=== PATIENT | male | born 1950 | race Asian ===

== ENCOUNTER 2020-01-08 06:43 | Inpatient (IN) | payer OTHER ==
[~2020-01-08] VITALS: Ht 149.9 cm; Wt 50.3 kg
[~2020-01-08 06:43] MED LIST: AMITIZA24 MC1 PO; FLA500 PO; LEVAQUIN500 M1 PO; MIRUD PO
[2020-01-08 07:06] VITALS: BP 142/79
[2020-01-08 14:00] VITALS: BP 142/65
[2020-01-08 14:03] LABS: BASOPHIL % 0 % (0-2); PLATELET COUNT 573 x10^3mcL (130-400); RED CELL DISTRIBUTION WIDTH 15.2 % (11.5-14.5)
[2020-01-08 14:08] LABS: CALCIUM 7.8 mg/dL (8.5-10.1); CARBON DIOXIDE 23.3 mmol/L (21-32); CHLORIDE SERUM 103 mmol/L (98-107); CREATININE SERUM 0.7 mg/dL (0.7-1.3); GFR1 > 60 mL/min; GLUCOSE SERUM 161 mg/dL (74-106); POTASSIUM SERUM 3.4 mmol/L (3.5-5.1); SODIUM SERUM 138 mmol/L (136-145)
[2020-01-08 14:13] LABS: ALKALINE PHOSPHATASE 45 U/L (46-116); ALT/SGPT 19 U/L (16-63); AST/SGOT 22 U/L (15-37); BILIRUBIN TOTAL 0.3 mg/dL (0.20-1.00); TOTAL PROTEIN, SERUM 6.6 g/dL (6.4-8.2)
[2020-01-08 14:32] LABS: ALBUMIN 2.7 g/dL (3.4-5.0)
[2020-01-08 16:23] VITALS: BP 103/52
[2020-01-09 07:15] LABS: BASOPHIL % 0.1 % (0-2)
[2020-01-09 07:28] LABS: ALBUMIN 2.4 g/dL (3.4-5.0); ALKALINE PHOSPHATASE 40 U/L (46-116); ALT/SGPT 14 U/L (16-63); AST/SGOT 19 U/L (15-37); BILIRUBIN TOTAL 0.3 mg/dL (0.20-1.00); CALCIUM 7.8 mg/dL (8.5-10.1); CARBON DIOXIDE 25.6 mmol/L (21-32); CHLORIDE SERUM 106 mmol/L (98-107); CREATININE SERUM 0.7 mg/dL (0.7-1.3); GFR1 > 60 mL/min; GLUCOSE SERUM 139 mg/dL (74-106); POTASSIUM SERUM 3.3 mmol/L (3.5-5.1); SODIUM SERUM 138 mmol/L (136-145); TOTAL PROTEIN, SERUM 6.2 g/dL (6.4-8.2)
[2020-01-09 07:38] LABS: PLATELET COUNT 540 x10^3mcL (130-400)
[2020-01-09 09:13] VITALS: BP 131/71
[2020-01-09 16:12] VITALS: BP 109/62
[2020-01-09 17:53] VITALS: BP 121/69
[2020-01-09 20:15] VITALS: BP 106/64
[2020-01-09 22:30] VITALS: BP 110/52
[2020-01-10 02:43] VITALS: BP 115/56
[2020-01-10 07:19] LABS: CALCIUM 7.8 mg/dL (8.5-10.1); CARBON DIOXIDE 27.2 mmol/L (21-32); CHLORIDE SERUM 107 mmol/L (98-107); CREATININE SERUM 0.8 mg/dL (0.7-1.3); GFR1 > 60 mL/min; GLUCOSE SERUM 103 mg/dL (74-106); SODIUM SERUM 141 mmol/L (136-145)
[2020-01-10 07:56] LABS: PLATELET COUNT 460 x10^3mcL (130-400); RED CELL DISTRIBUTION WIDTH 15.5 % (11.5-14.5)
[2020-01-10 08:48] LABS: rbc morphology (normal/abnorm) NORMAL (NORMAL)
[2020-01-10 09:40] VITALS: BP 105/56
[2020-01-10 13:47] VITALS: BP 92/52
[2020-01-10 18:18] VITALS: BP 109/59
[2020-01-10 20:59] VITALS: BP 99/59
[2020-01-11 06:22] VITALS: BP 101/57
[2020-01-11 07:09] LABS: BASOPHIL % 0 % (0-2); PLATELET COUNT 420 x10^3mcL (130-400); RED CELL DISTRIBUTION WIDTH 16.8 % (11.5-14.5)
[2020-01-11 07:43] LABS: ALKALINE PHOSPHATASE 82 U/L (46-116); ALT/SGPT 12 U/L (16-63); AST/SGOT 27 U/L (15-37); BILIRUBIN TOTAL 0.8 mg/dL (0.20-1.00); CALCIUM 7.6 mg/dL (8.5-10.1); CARBON DIOXIDE 24.7 mmol/L (21-32); CHLORIDE SERUM 106 mmol/L (98-107); CREATININE SERUM 0.7 mg/dL (0.7-1.3); GFR1 > 60 mL/min; GLUCOSE SERUM 112 mg/dL (74-106); POTASSIUM SERUM 3.7 mmol/L (3.5-5.1); SODIUM SERUM 139 mmol/L (136-145)
[2020-01-11 07:54] LABS: ALBUMIN 1.7 g/dL (3.4-5.0); TOTAL PROTEIN, SERUM 5.1 g/dL (6.4-8.2)
[2020-01-11 08:41] VITALS: BP 114/66
[2020-01-11 08:58] LABS: CALCIUM 7.1 mg/dL (8.5-10.1); CARBON DIOXIDE 25.3 mmol/L (21-32); CHLORIDE SERUM 106 mmol/L (98-107); CREATININE SERUM 0.7 mg/dL (0.7-1.3); GFR1 > 60 mL/min; GLUCOSE SERUM 114 mg/dL (74-106); SODIUM SERUM 140 mmol/L (136-145)
[2020-01-11 12:28] VITALS: BP 129/75
[2020-01-11 17:15] VITALS: BP 128/78
[2020-01-11 20:25] VITALS: BP 142/69
[2020-01-12 05:28] VITALS: BP 139/51
[2020-01-12 07:32] LABS: PLATELET COUNT 423 x10^3mcL (130-400); RED CELL DISTRIBUTION WIDTH 16.5 % (11.5-14.5)
[2020-01-12 07:45] LABS: ALKALINE PHOSPHATASE 32 U/L (46-116); ALT/SGPT 13 U/L (16-63); AST/SGOT 26 U/L (15-37); BILIRUBIN TOTAL 0.6 mg/dL (0.20-1.00); CALCIUM 7.7 mg/dL (8.5-10.1); CARBON DIOXIDE 24.2 mmol/L (21-32); CHLORIDE SERUM 105 mmol/L (98-107); CREATININE SERUM 0.6 mg/dL (0.7-1.3); GFR1 > 60 mL/min; GLUCOSE SERUM 120 mg/dL (74-106); POTASSIUM SERUM 3.7 mmol/L (3.5-5.1); SODIUM SERUM 142 mmol/L (136-145)
[2020-01-12 07:47] LABS: ALBUMIN 1.6 g/dL (3.4-5.0); TOTAL PROTEIN, SERUM 5.7 g/dL (6.4-8.2)
[2020-01-12 08:02] VITALS: BP 155/83
[2020-01-12 10:43] LABS: CALCIUM 7.9 mg/dL (8.5-10.1); CARBON DIOXIDE 24.1 mmol/L (21-32); CHLORIDE SERUM 106 mmol/L (98-107); CREATININE SERUM 0.7 mg/dL (0.7-1.3); GFR1 > 60 mL/min; GLUCOSE SERUM 121 mg/dL (74-106); POTASSIUM SERUM 3.7 mmol/L (3.5-5.1); SODIUM SERUM 142 mmol/L (136-145)
[2020-01-12 12:52] VITALS: BP 110/59
[2020-01-12 13:22] LABS: rbc morphology (normal/abnorm) NORMAL (NORMAL)
[2020-01-12 16:50] VITALS: BP 132/77
[2020-01-12 19:50] VITALS: BP 138/72
[2020-01-13 05:31] VITALS: BP 127/70
[2020-01-13 07:15] VITALS: BP 140/69
[2020-01-13 08:19] LABS: ALKALINE PHOSPHATASE 61 U/L (46-116); ALT/SGPT 10 U/L (16-63); AST/SGOT 22 U/L (15-37); BILIRUBIN TOTAL 0.4 mg/dL (0.20-1.00); CALCIUM 7.5 mg/dL (8.5-10.1); CARBON DIOXIDE 31.6 mmol/L (21-32); CHLORIDE SERUM 105 mmol/L (98-107); CREATININE SERUM 0.5 mg/dL (0.7-1.3); GFR1 > 60 mL/min; GLUCOSE SERUM 143 mg/dL (74-106); POTASSIUM SERUM 3.1 mmol/L (3.5-5.1); SODIUM SERUM 142 mmol/L (136-145)
[2020-01-13 08:21] LABS: ALBUMIN 1.4 g/dL (3.4-5.0); TOTAL PROTEIN, SERUM 5.4 g/dL (6.4-8.2)
[2020-01-13 08:42] LABS: PLATELET COUNT 401 x10^3mcL (130-400); RED CELL DISTRIBUTION WIDTH 16.1 % (11.5-14.5)
[2020-01-13 08:43] LABS: BASOPHIL % 0 % (0-2)
[2020-01-13 09:01] LABS: CALCIUM 7.3 mg/dL (8.5-10.1); CARBON DIOXIDE 30.3 mmol/L (21-32); CHLORIDE SERUM 106 mmol/L (98-107); CREATININE SERUM 0.5 mg/dL (0.7-1.3); GFR1 > 60 mL/min; GLUCOSE SERUM 143 mg/dL (74-106); MAGNESIUM 1.9 mg/dL (1.8-2.4); PHOSPHOROUS 1.9 mg/dL (2.5-4.9); POTASSIUM SERUM 3.3 mmol/L (3.5-5.1); SODIUM SERUM 144 mmol/L (136-145)
[2020-01-13 12:10] VITALS: BP 133/71
[2020-01-13 16:08] VITALS: BP 123/66
[2020-01-13 19:32] VITALS: BP 123/71
[2020-01-14 05:44] VITALS: BP 128/68
[2020-01-14 07:36] LABS: BASOPHIL % 0 % (0-2); PLATELET COUNT 421 x10^3mcL (130-400)
[2020-01-14 07:49] LABS: ALKALINE PHOSPHATASE 77 U/L (46-116); ALT/SGPT 14 U/L (16-63); AST/SGOT 25 U/L (15-37); BILIRUBIN TOTAL 0.79 mg/dL (0.20-1.00); CALCIUM 7.4 mg/dL (8.5-10.1); CARBON DIOXIDE 29.2 mmol/L (21-32); CHLORIDE SERUM 103 mmol/L (98-107); CREATININE SERUM 0.5 mg/dL (0.7-1.3); GFR1 > 60 mL/min; GLUCOSE SERUM 104 mg/dL (74-106); POTASSIUM SERUM 3.2 mmol/L (3.5-5.1); SODIUM SERUM 138 mmol/L (136-145)
[2020-01-14 07:50] LABS: ALBUMIN 1.4 g/dL (3.4-5.0); TOTAL PROTEIN, SERUM 5.5 g/dL (6.4-8.2)
[2020-01-14 08:34] VITALS: BP 115/67
[2020-01-14 12:36] VITALS: BP 114/66
[2020-01-14 16:23] VITALS: BP 117/68
[2020-01-14 21:22] VITALS: BP 116/71
[2020-01-15 05:33] VITALS: BP 120/3
[2020-01-15 07:40] LABS: BASOPHIL % 0.3 % (0-2)
[2020-01-15 07:57] LABS: PLATELET COUNT 447 x10^3mcL (130-400); RED CELL DISTRIBUTION WIDTH 15.9 % (11.5-14.5)
[2020-01-15 08:09] LABS: ALKALINE PHOSPHATASE 93 U/L (46-116); ALT/SGPT 23 U/L (16-63); AST/SGOT 31 U/L (15-37); BILIRUBIN TOTAL 0.8 mg/dL (0.20-1.00); CALCIUM 7.8 mg/dL (8.5-10.1); CARBON DIOXIDE 26.7 mmol/L (21-32); CHLORIDE SERUM 102 mmol/L (98-107); CREATININE SERUM 0.5 mg/dL (0.7-1.3); GFR1 > 60 mL/min; GLUCOSE SERUM 125 mg/dL (74-106); POTASSIUM SERUM 3.5 mmol/L (3.5-5.1); SODIUM SERUM 137 mmol/L (136-145)
[2020-01-15 08:12] LABS: ALBUMIN 1.5 g/dL (3.4-5.0); TOTAL PROTEIN, SERUM 5.7 g/dL (6.4-8.2)
[2020-01-15 08:28] VITALS: BP 104/59
[2020-01-15 11:11] LABS: CALCIUM 7.6 mg/dL (8.5-10.1); CARBON DIOXIDE 26.6 mmol/L (21-32); CHLORIDE SERUM 102 mmol/L (98-107); CREATININE SERUM 0.5 mg/dL (0.7-1.3); GFR1 > 60 mL/min; GLUCOSE SERUM 130 mg/dL (74-106); POTASSIUM SERUM 4.1 mmol/L (3.5-5.1); SODIUM SERUM 139 mmol/L (136-145)
[2020-01-15 11:47] VITALS: BP 104/59
[2020-01-15 12:16] VITALS: BP 117/65
[2020-01-15 16:56] VITALS: BP 107/66
[2020-01-15 20:17] VITALS: BP 113/71
[2020-01-16 05:30] VITALS: BP 116/62
[2020-01-16 07:30] LABS: CALCIUM 7.9 mg/dL (8.5-10.1); CARBON DIOXIDE 26.9 mmol/L (21-32); CHLORIDE SERUM 101 mmol/L (98-107); CREATININE SERUM 0.6 mg/dL (0.7-1.3); GFR1 > 60 mL/min; GLUCOSE SERUM 125 mg/dL (74-106); PHOSPHOROUS 3.4 mg/dL (2.5-4.9); POTASSIUM SERUM 3.8 mmol/L (3.5-5.1); SODIUM SERUM 135 mmol/L (136-145)
[2020-01-16 07:54] LABS: BASOPHIL % 0.2 % (0-2)
[2020-01-16 08:00] VITALS: BP 109/69
[2020-01-16 08:23] LABS: PLATELET COUNT 590 x10^3mcL (130-400); RED CELL DISTRIBUTION WIDTH 15.8 % (11.5-14.5)
[2020-01-16 12:17] VITALS: BP 105/59
[2020-01-16 17:03] VITALS: BP 100/62
[2020-01-16 19:59] VITALS: BP 115/66
[2020-01-17 04:49] VITALS: BP 108/63
[2020-01-17 07:02] LABS: BASOPHIL % 0.1 % (0-2)
[2020-01-17 07:10] LABS: RED CELL DISTRIBUTION WIDTH 15.8 % (11.5-14.5)
[2020-01-17 07:11] LABS: PLATELET COUNT 659 x10^3mcL (130-400)
[2020-01-17 07:14] LABS: CALCIUM 7.9 mg/dL (8.5-10.1); CARBON DIOXIDE 22.8 mmol/L (21-32); CHLORIDE SERUM 101 mmol/L (98-107); CREATININE SERUM 0.6 mg/dL (0.7-1.3); GFR1 > 60 mL/min; GLUCOSE SERUM 125 mg/dL (74-106); POTASSIUM SERUM 4.8 mmol/L (3.5-5.1); SODIUM SERUM 132 mmol/L (136-145)
[2020-01-17 08:35] VITALS: BP 109/61
[2020-01-17 11:57] VITALS: BP 114/65
[2020-01-17 16:35] VITALS: BP 94/58
[2020-01-17 20:11] VITALS: BP 111/67
[2020-01-18 06:24] VITALS: BP 111/66
[2020-01-18 06:26] VITALS: BP 111/66
[2020-01-18 07:16] LABS: BASOPHIL % 0.2 % (0-2)
[2020-01-18 07:31] VITALS: BP 106/67
[2020-01-18 07:44] LABS: CALCIUM 8.1 mg/dL (8.5-10.1); CARBON DIOXIDE 23.7 mmol/L (21-32); CHLORIDE SERUM 100 mmol/L (98-107); CREATININE SERUM 0.6 mg/dL (0.7-1.3); GFR1 > 60 mL/min; GLUCOSE SERUM 117 mg/dL (74-106); POTASSIUM SERUM 5.2 mmol/L (3.5-5.1); SODIUM SERUM 133 mmol/L (136-145)
[2020-01-18 08:07] LABS: PLATELET COUNT 743 x10^3mcL (130-400); RED CELL DISTRIBUTION WIDTH 15.8 % (11.5-14.5)
[2020-01-18 11:51] VITALS: BP 107/63
[2020-01-18 20:16] VITALS: BP 110/63
[2020-01-18 20:17] VITALS: BP 126/57
[2020-01-19 05:12] VITALS: BP 102/56
[2020-01-19 07:30] LABS: BASOPHIL % 0.6 % (0-2)
[2020-01-19 07:50] LABS: CARBON DIOXIDE 25.6 mmol/L (21-32); CHLORIDE SERUM 101 mmol/L (98-107); CREATININE SERUM 0.8 mg/dL (0.7-1.3); GFR1 > 60 mL/min; GLUCOSE SERUM 83 mg/dL (74-106); POTASSIUM SERUM 4.3 mmol/L (3.5-5.1); SODIUM SERUM 135 mmol/L (136-145)
[2020-01-19 08:57] VITALS: BP 99/65
[2020-01-19 10:33] LABS: RED CELL DISTRIBUTION WIDTH 15.3 % (11.5-14.5)
[2020-01-19 10:34] LABS: PLATELET COUNT 883 x10^3mcL (130-400)
[2020-01-19 12:51] VITALS: BP 105/63
[2020-01-19 17:13] VITALS: BP 110/56
[2020-01-19 20:12] VITALS: BP 100/62
[2020-01-20] VITALS (7 sets, daily range): BP systolic 99–135; BP diastolic 58–70
[2020-01-20 06:39] LABS: BASOPHIL % 0.4 % (0-2)
[2020-01-20 07:05] LABS: CARBON DIOXIDE 24.2 mmol/L (21-32); CHLORIDE SERUM 103 mmol/L (98-107); CREATININE SERUM 0.8 mg/dL (0.7-1.3); GFR1 > 60 mL/min; GLUCOSE SERUM 85 mg/dL (74-106); POTASSIUM SERUM 4.7 mmol/L (3.5-5.1); SODIUM SERUM 135 mmol/L (136-145)
[2020-01-20 07:06] LABS: RED CELL DISTRIBUTION WIDTH 15.6 % (11.5-14.5)
[2020-01-20 07:12] LABS: PLATELET COUNT 978 x10^3mcL (130-400)
== END 2020-01-20 20:09 | disposition home or self-care (01) | DRG 329 ==
LOC: DS 06:43 → OR 09:00 → MU 12:27 → DU 12:27 → MU 13:52 → DU 01-10 08:21
PROVIDERS: Internal Medicine; Internal Medicine Gastroenterology; ADMIT Surgery; ATTEND Surgery
PROC: 0DB68ZX Excision of Stomach, Via Natural or Artificial Opening Endoscopic, Diagnostic (ICD-10-PCS; principal; 2020-01-08 09:00)
PROC: 0DBN8ZX Excision of Sigmoid Colon, Via Natural or Artificial Opening Endoscopic, Diagnostic (ICD-10-PCS; 2020-01-08 09:00)
PROC: 0DTN4ZZ Resection of Sigmoid Colon, Percutaneous Endoscopic Approach (ICD-10-PCS; 2020-01-09)
PROC: 0DQW0ZZ Repair Peritoneum, Open Approach (ICD-10-PCS; 2020-01-09)
PROC: 0DJW4ZZ Inspection of Peritoneum, Percutaneous Endoscopic Approach (ICD-10-PCS; 2020-01-11)
PROC: 02HV33Z Insertion of Infusion Device into Superior Vena Cava, Percutaneous Approach (ICD-10-PCS; 2020-01-11)
PROC: 30233N1 Transfusion of Nonautologous Red Blood Cells into Peripheral Vein, Percutaneous Approach (ICD-10-PCS; 2020-01-11)
PROC: 0W9F3ZZ Drainage of Abdominal Wall, Percutaneous Approach (ICD-10-PCS; 2020-01-20)
DX: C18.7 Malignant neoplasm of sigmoid colon (principal); A41.9 Sepsis, unspecified organism; K57.92 Diverticulitis of intestine, part unspecified, without perforation or abscess without bleeding; K91.89 Other postprocedural complications and disorders of digestive system; K56.7 Ileus, unspecified; Y83.8 Other surgical procedures as the cause of abnormal reaction of the patient, or of later complication, without mention of misadventure at the time of the procedure; Y82.8 Other medical devices associated with adverse incidents; E87.5 Hyperkalemia; I10 Essential (primary) hypertension; K59.00 Constipation, unspecified; R63.0 Anorexia; D64.9 Anemia, unspecified; Z20.828 Contact with and (suspected) exposure to other viral communicable diseases; J45.909 Unspecified asthma, uncomplicated; Z79.899 Other long term (current) drug therapy; Z87.891 Personal history of nicotine dependence
CPT/HCPCS: 32557; 43235; 45378; 82962; 88344; 88361; C1729; G0378; J0330; J0690; J1170; J1200; J1364; J1610; J1650; J1885; J1940; J2001; J2250; J2310; J2405; J2543; J2704; J2710; J3010; J3480; J3490; J7030; J7040; J7042; J7050; J7070; J7120; J7131; P9016; P9045; Q0092; Q9967; U0003-CS